=== PATIENT | male | born 1995 | race Two or more races ===

== ENCOUNTER 2018-12-15 00:40 | Emergency (ER) | payer OTHER ==
[2018-12-15] MEDS ORDERED: CEFAZOLIN 1 GM/D5W RTU 1 GM/50 ML RTUPB IV ONE (01:29)
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
[2018-12-15] MEDS ORDERED: LIDOCAINE 1%/EPINEPHRINE INJ 20 ML VIAL INJ ONE (02:46)
[2018-12-15 05:59] VITALS: BP 118/62
== END 2018-12-15 05:59 ==
LOC: EDBD → ER 00:40
DX: S61.411A Laceration without foreign body of right hand, initial encounter (principal); S56.429A Laceration of extensor muscle, fascia and tendon of unspecified finger at forearm level, initial encounter; S51.811A Laceration without foreign body of right forearm, initial encounter; W25.XXXA Contact with sharp glass, initial encounter; F17.200 Nicotine dependence, unspecified, uncomplicated
CPT/HCPCS: 73090; 73130; 12002; J0690; J3490; 96365; 99283